=== PATIENT | male | born 1955 | race Caucasian/White ===

== ENCOUNTER 2017-04-08 09:21 | Emergency (ER) | payer BC ==
[~2017-04-08] VITALS: Ht 175.3 cm; Wt 85.0 kg
[~2017-04-08 09:21] MED LIST: ASPIRIN81 MG OR; CARVEDILOL6.25 MG OR; CRESTOR40 MG OR; MICARDIS40 MG; OMEGA 3340 MG OR; VITAMIN C1000 MG OR; ZETIA10 MG OR
[2017-04-08 11:10] VITALS: BP 130/60
[2017-04-08] MEDS ORDERED: LORTAB 1010 MG PO (11:10)
== END 2017-04-08 11:13 | disposition home or self-care (01) | DRG 206 ==
LOC: ED 09:21
DX: S22.32XA Fracture of one rib, left side, initial encounter for closed fracture (principal); M25.512 Pain in left shoulder; W17.89XA Other fall from one level to another, initial encounter; Y93.H2 Activity, gardening and landscaping; Y92.007 Garden or yard of unspecified non-institutional (private) residence as the place of occurrence of the external cause